=== PATIENT | female | born 1940 | race Two or more races ===

== ENCOUNTER 2023-12-24 16:42 | Emergency (ER) | payer OTHER ==
[~2023-12-24] VITALS: Ht 172.7 cm; Wt 72.6 kg
[2023-12-24 18:45] LABS: HEMATOCRIT 42.1 % (36.0-45.00); HEMOGLOBIN 14.7 g/dL (12.0-15.00); MEAN CELL VOLUME 93.8 fL (80.00-100.00); MEAN CORPUSCULAR HEMOGLOBIN 32.7 pg (27.00-32.0); MEAN CORPUSCULAR HGB CONC 34.9 g/dl (32.0-36.0); PLATELET COUNT 289 K/uL (150-450); RED BLOOD COUNT 4.48 M/uL (4.00-6.00); RED CELL DISTRIBUTION WIDTH 13.3 % (11.5-14.5)
[2023-12-24 19:24] LABS: CALCIUM 10.1 mg/dL (8.5-10.1); CREATININE SERUM 0.75 mg/dL (0.55-1.02); GFR 74.16; POTASSIUM 4.36 mEq/L (3.5-5.1)
== END 2023-12-24 20:05 | disposition home or self-care (01) ==
LOC: ER 16:44
DX: B34.9 Viral infection, unspecified (principal); R53.81 Other malaise; Z20.822 Contact with and (suspected) exposure to COVID-19